=== PATIENT | female | born 1975 | race Caucasian/White ===

== ENCOUNTER → 2020-06-28 | Outpatient (REF) | payer OTHER ==
[~2020-06-28] MED LIST: CLOP75TA2 PO; DOCU10CA PO; IBUP80TA PO; IRON1TAB PO; IRON65TA PO; LEVO100T4 PO; LEVO137T2 PO; MAPA500T17 PO; META800T82 PO; PERCOCET PO; SYNT137T7 PO; VITA-108 PO; VITA100037 PO; VITA100067 PO; ZANA4CAP PO; ZONI100C17 PO; ZONI50CA11 PO; [UNRECOGNIZED DRUG - CODE] XX
== END ==
LOC: M LAB REF 17:02
PROVIDERS: ATTEND Ophthalmology
DX: D23.122 Other benign neoplasm of skin of left lower eyelid, including canthus (principal)

== ENCOUNTER → 2021-01-03 | Outpatient (CLI) | payer OTHER | LOC: M PLARAD 08:05 | PROVIDERS: ATTEND Internal Medicine | DX: I67.1 Cerebral aneurysm, nonruptured (principal) ==

== ENCOUNTER → 2024-06-23 | Outpatient (REF) | payer OTHER ==
[~2024-06-23] MED LIST changes: -ZONI100C17 PO; +ZONI100C67 PO
[2024-06-23 16:53] LABS: APPEARANCE, URINE CLEAR (CLEAR); BACTERIA, URINE AUTO NEGATIVE (NEGATIVE); BILIRUBIN, URINE AUTO NEGATIVE (NEGATIVE); BLOOD, URINE BLOOD NEGATIVE (NEGATIVE); COLOR, URINE YELLOW (YELLOW); GLUCOSE, URINE (UA) AUTO NEGATIVE (NEGATIVE); KETONE, URINE AUTO NEGATIVE (NEGATIVE); LEUKOCYTE ESTERASE, URINE AUTO NEGATIVE (NEGATIVE); NITRITE, URINE AUTO NEGATIVE (NEGATIVE); PROTEIN, URINE AUTO NEGATIVE (NEGATIVE); RBC, URINE AUTO 0 /HPF (0-3); SPECIFIC GRAVITY URINE AUTO 1.009 (1.002-1.035); SQUAMOUS EPITHELIAL CELL UR AU 0 /HPF (0-6); UROBILINOGEN, URINE AUTO 0.2 mg/dL (0.0-2.0); WBC, URINE AUTO 1 /HPF (0-3)
[2024-06-23 17:21] LABS: CREATININE,RANDOM URINE 65.2 MG/DL
[2024-06-23 17:22] LABS: TOTAL PROTEIN,RANDOM URINE < 6.0 MG/DL (0.0-14.0)
[2024-06-23 18:33] LABS: BASO % 0.7 % (0.0-1.0); EOS # 0.1 10^3/uL (0.0-0.5); EOS % 2.1 % (0.0-3.0); HEMATOCRIT 40.3 % (36.0-47.0); HEMOGLOBIN 13.2 g/dl (12.0-15.5); LYMPH # 1.4 10^3/uL (1.5-5.0); LYMPH % 23.8 % (24.0-44.0); MEAN CORPUSCULAR HEMOGLOBIN 27.3 pg (27.0-33.0); MEAN CORPUSCULAR HGB CONC 32.8 g/dl (32.0-36.5); MEAN CORPUSCULAR VOLUME 83.3 fl (80.0-96.0); MONO # 0.4 10^3/uL (0.0-0.8); NEUTROPHILS # 3.8 10^3/uL (1.5-8.5); PLATELET COUNT, AUTOMATED 208 10^3/uL (150-450); RED BLOOD COUNT 4.84 10^6/uL (4.00-5.40); WHITE BLOOD COUNT 5.7 10^3/uL (4.0-10.0)
[2024-06-23 18:41] LABS: ERYTHROCYTE SEDIMENTATION RATE 22 mm/hr (0-30)
[2024-06-23 18:48] LABS: TOTAL 25(OH) VITAMIN D 36.1 NG/ML (20.0-100.0)
[2024-06-23 18:49] LABS: ALBUMIN 4.3 G/DL (3.2-5.2); ALKALINE PHOSPHATASE 92 U/L (35-104); ALT/SGPT 26 U/L (7.0-40); AST/SGOT 19 U/L (<34); BILIRUBIN,DIRECT 0.1 MG/DL (<0.4); BILIRUBIN,TOTAL 0.5 MG/DL (0.3-1.2); BLOOD UREA NITROGEN 15 MG/DL (9-23); C REACTIVE PROTEIN QUANTITATIV < 0.50 MG/DL (<1.0); CARBON DIOXIDE LEVEL 26 MMOL/L (20-31); CHLORIDE LEVEL 106 MMOL/L (98-107); CREATININE FOR GFR 0.89 MG/DL (0.55-1.30); GLOMERULAR FILTRATION RATE > 60.0 (>51); GLUCOSE, FASTING 75 MG/DL (60-100); POTASSIUM SERUM 3.9 MMOL/L (3.5-5.1); SODIUM LEVEL 139 MMOL/L (136-145); TOTAL PROTEIN 7.5 G/DL (5.7-8.2)
[2024-06-23 18:50] LABS: COMPLEMENT C3 154.4 MG/DL (90.0-170.0)
[2024-06-23 18:51] LABS: COMPLEMENT C4 30.6 MG/DL (12-36); IMMUNOGLOBULIN A 128.2 MG/DL (40-350); IMMUNOGLOBULIN G 1068 MG/DL (650-1600); IMMUNOGLOBULIN M 44.4 MG/DL (50-300)
[2024-06-25 04:57] LABS: T P ELECTROPHORESIS SO 7.3 g/dL (6.1-8.1)
== END ==
LOC: M SFHCRHEU 14:43
PROVIDERS: ATTEND Internal Medicine
DX: D72.818 Other decreased white blood cell count (principal)

== ENCOUNTER → 2024-06-30 | Outpatient (CLI) | payer OTHER | LOC: M RAD 10:54 | PROVIDERS: ATTEND Internal Medicine | DX: M51.360 Other intervertebral disc degeneration, lumbar region with discogenic back pain only (principal); M19.041 Primary osteoarthritis, right hand; M19.042 Primary osteoarthritis, left hand; M54.9 Dorsalgia, unspecified; M25.40 Effusion, unspecified joint; R93.6 Abnormal findings on diagnostic imaging of limbs ==

== ENCOUNTER → 2024-07-18 | Outpatient (CLI) | payer OTHER | LOC: M SLEEP HO 10:17 | PROVIDERS: ATTEND Internal Medicine | DX: R53.83 Other fatigue (principal); G47.33 Obstructive sleep apnea (adult) (pediatric) ==

== ENCOUNTER → 2024-09-29 | Outpatient (REF) | payer OTHER ==
[2024-10-04 00:33] LABS: BETA-2 GLYCOPROTEIN I ABY IGA < 2.0 U/mL (<20.0); BETA-2 GLYCOPROTEIN I ABY IGG < 2.0 U/mL (<20.0); BETA-2 GLYCOPROTEIN I ABY IGM < 2.0 U/mL (<20.0)
== END ==
LOC: M SFHCRHEU 12:26
PROVIDERS: ATTEND Internal Medicine
DX: R76.0 Raised antibody titer (principal); D80.1 Nonfamilial hypogammaglobulinemia

== ENCOUNTER 2025-04-04 11:23 | Day surgery (SDC) | payer OTHER ==
[~2025-04-04] VITALS: Ht 149.9 cm; Wt 66.3 kg
[~2025-04-04 11:23] MED LIST changes: +DULO1CAP6 PO; +TRAZ-252 PO
[2025-04-04] MEDS ORDERED: LIDOCAINE 2% 100 MG/5 ML SDV (FOR ANES.) As Ordered ONE (12:03)
[2025-04-04] MEDS ORDERED: ONDANSETRON 4MG/2ML VIAL As Ordered ONE (12:07)
[2025-04-04] MEDS ORDERED: AMLO1TAB25 PO (12:09)
[2025-04-04] MEDS ORDERED: LISI5TAB11 PO (12:09)
[2025-04-04 12:25] VITALS: TEMP 98
[2025-04-04 12:45] VITALS: BP 120/75; O2SAT 99
== END 2025-04-04 12:46 | disposition home or self-care (01) ==
LOC: M OPP 11:23
PROVIDERS: ATTEND Surgery
DX: Z12.11 Encounter for screening for malignant neoplasm of colon (principal); R19.5 Other fecal abnormalities; K64.0 First degree hemorrhoids; Z86.73 Personal history of transient ischemic attack (TIA), and cerebral infarction without residual deficits; G47.30 Sleep apnea, unspecified; Z88.5 Allergy status to narcotic agent; Z79.899 Other long term (current) drug therapy
CPT/HCPCS: 45378; J2405

== ENCOUNTER → 2025-05-03 | Outpatient (CLI) | payer OTHER ==
[~2025-05-03] MED LIST changes: +AMLO1TAB25 PO; +LISI5TAB11 PO
== END ==
LOC: M RAD 07:03
PROVIDERS: ATTEND Pain Medicine Interventional Pain Medicine
DX: M54.16 Radiculopathy, lumbar region (principal)